=== PATIENT | female | born 1975 | race American Indian/Alaskan Native ===

== ENCOUNTER 2018-06-22 16:56 | Emergency (ER) | payer OTHER ==
[2018-06-22] MEDS ORDERED: ULTRAM PO ONE (20:38)
--- NOTE | 2018-06-22 20:42 | Emergency Department Report ---
ED General Adult HPI - General Chief complaint: Headache Stated complaint: HEAD ACHE/EARS STOPPED UP Time Seen by Provider: 06/22/18 20:28 Source: patient Mode of arrival: Ambulatory Limitations: No Limitations - History of Present Illness Initial comments: There is a 42-year-old female diagnosed with Diagnosis of URI 7 days ago and is also treated with prednisone and NSAIDs states symptoms continue sinus pain sore throat and bilateral ear pain low grade fever 100.4 MAXIMUM TEMPERATURE. symptoms are exacerbated by movement symptoms are relieved by rest associated yellow green nasal rhinorhea Onset/Timin -: week(s) Location: head (emergency) Radiation: non-radiation Severity scale (0 -10): 4 Quality: aching Consistency: intermittent Improves with: rest Worsens with: movement Associated Symptoms: cough, fever/chills, malaise. denies: chest pain, shortness of breath, syncope, weakness Treatments Prior to Arrival: NSAID - Related Data Previous Rx's Medication Instructions Recorded Last Taken Type Permethrin 5% [Acticin 5% CREAM] 60 gm TP ONCE #60 gm 04/13/15 Unknown Rx hydrOXYzine HCL [Atarax] 25 mg PO Q6HR PRN #20 tablet 04/13/15 Unknown Rx traMADol [Ultram] 50 mg PO Q6HR PRN #15 tablet 04/13/15 Unknown Rx Cetirizine HCl [ZyrTEC] 10 mg PO DAILY #30 capsule 06/22/18 Unknown Rx Clindamycin [Clindamycin CAP] 300 mg PO Q8H #30 cap 06/22/18 Unknown Rx Fluticasone [Flonase] 1 spray NS QDAY #1 bottle 06/22/18 Unknown Rx Ibuprofen 800 mg PO TID PRN #30 tablet 06/22/18 Unknown Rx Allergies Allergy/AdvReac Type Severity Reaction Status Date / Time Penicillins Allergy Rash Verified 06/22/18 17:46 ED Review of Systems ROS: Stated complaint: HEAD ACHE/EARS STOPPED UP Other details as noted in HPI Constitutional: denies: chills, fever Eyes: denies: eye pain, eye discharge, vision change ENT: ear pain, throat pain, congestion. denies: dental pain, hearing loss, epistaxis Respiratory: cough. denies: shortness of breath, wheezing Cardiovascular: denies: chest pain, palpitations Endocrine: no symptoms reported Gastrointestinal: denies: abdominal pain, nausea, vomiting, diarrhea Genitourinary: denies: urgency, dysuria, discharge Musculoskeletal: denies: back pain, joint swelling, arthralgia Skin: denies: rash, lesions Neurological: denies: headache, weakness, paresthesias Psychiatric: denies: anxiety, depression Hematological/Lymphatic: denies: easy bleeding, easy bruising ED Past Medical Hx - Past Medical History Previous Medical History?: Yes Hx Hypertension: Yes Additional medical history: Sickle cell trait, hypothyroidism, anemia - Surgical History Past Surgical History?: Yes Additional Surgical History: Tubal ligation - Social History Smoking Status: Never Smoker Substance Use Type: None - Medications Home Medications: Home Medications Medication Instructions Recorded Confirmed Last Taken Type Permethrin 5% [Acticin 5% CREAM] 60 gm TP ONCE #60 gm 04/13/15 Unknown Rx hydrOXYzine HCL [Atarax] 25 mg PO Q6HR PRN #20 tablet 04/13/15 Unknown Rx traMADol [Ultram] 50 mg PO Q6HR PRN #15 tablet 04/13/15 Unknown Rx Cetirizine HCl [ZyrTEC] 10 mg PO DAILY #30 capsule 06/22/18 Unknown Rx Clindamycin [Clindamycin CAP] 300 mg PO Q8H #30 cap 06/22/18 Unknown Rx Fluticasone [Flonase] 1 spray NS QDAY #1 bottle 06/22/18 Unknown Rx Ibuprofen 800 mg PO TID PRN #30 tablet 06/22/18 Unknown Rx ED Physical Exam - General Limitations: No Limitations General appearance: alert, in no apparent distress - Head Head exam: Present: atraumatic, normocephalic, normal inspection - Eye Eye exam: Present: normal appearance, PERRL, EOMI Pupils: Present: normal accommodation - ENT ENT exam: Present: other (bilat maxillary and frontal sinus pain with palpation no erythema no edema, nose: bilat turbinater erythema post nasal drip yellow , ) - Expanded ENT Exam Expanded TM/Canal exam: Erythema: Right TM, Left TM, Effusion: Left TM, Canal Tenderness : Right TM, Left TM Mouth exam: Absent: trismus Throat exam: Positive: tonsillar erythema, tonsillomegaly, tonsillar exudate. Negative: R peritonsillar mass, L peritonsillar mass - Neck Neck exam: Present: full ROM, lymphadenopathy. Absent: tenderness, thyromegaly - Respiratory Respiratory exam: Present: normal lung sounds bilaterally. Absent: respiratory distress, wheezes, stridor, chest wall tenderness - Cardiovascular Cardiovascular Exam: Present: regular rate, normal rhythm, normal heart sounds. Absent: systolic murmur, diastolic murmur, rubs, gallop - GI/Abdominal GI/Abdominal exam: Present: soft, normal bowel sounds. Absent: tenderness, guarding, rebound, rigid, organomegaly, mass, bruit, pulsatile mass, hernia - Rectal Rectal exam: Present: deferred - Extremities Exam Extremities exam: Present: normal inspection - Back Exam Back exam: Present: normal inspection - Neurological Exam Neurological exam: Present: alert, oriented X3, CN II-XII intact, normal gait, reflexes normal. Absent: motor sensory deficit - Expanded Neurological Exam Expanded Patient oriented to: Present: person, place, time Speech: Present: fluid speech Cranial nerves: EOM's Intact: Normal, Gag Reflex: Normal, Tongue Deviation: Normal, Nystagmus: Normal, Facial Sensation: Normal Motor strength exam: RUE: 5, LUE: 5, RLE: 5, LLE: 5 Best Eye Response ([place]): (4) open spontaneously Best Motor Response ([place]): (6) obeys commands Best Verbal Response ([place]): (5) oriented [place] Total: 15 - Psychiatric Psychiatric exam: Present: normal affect - Skin Skin exam: Present: warm, dry, intact, normal color. Absent: rash ED Course Vital Signs 06/22/18 17:30 Temperature 98.6 F Pulse Rate 91 H Respiratory 18 Rate Blood Pressure 168/93 O2 Sat by Pulse 98 Oximetry ED Medical Decision Making - Medical Decision Making This history for sinusitis AOM and URI is currently taking ibuprofen prednisone and Augmentin continue Flonase and Zyrtec patient will follow PCP in 2-3 days patient verbalized understanding and agreement with discharge plan will be DC'd home in stable condition at this time Critical care attestation.: If time is entered above; I have spent that time in minutes in the direct care of this critically ill patient, excluding procedure time. ED Disposition Clinical Impression: URI, acute Sinusitis Qualifiers: Sinusitis location: maxillary Chronicity: acute Recurrence: non-recurrent Qualified Code(s): J01.00 - Acute maxillary sinusitis, unspecified AOM (acute otitis media) Qualifiers: Otitis media type: serous Laterality: bilateral Recurrence: not specified as recurrent Qualified Code(s): H65.03 - Acute serous otitis media, bilateral Disposition: TO HOME OR SELFCARE Is pt being admited?: No Does the pt Need Aspirin: No Condition: Good Instructions: Sinusitis (ED), Otitis Media (ED), Upper Respiratory Infection ( ED) Prescriptions: Cetirizine HCl [ZyrTEC] 10 mg PO DAILY #30 capsule Clindamycin [Clindamycin CAP] 300 mg PO Q8H #30 cap Fluticasone [Flonase] 1 spray NS QDAY #1 bottle Ibuprofen 800 mg PO TID PRN #30 tablet PRN Reason: pain fever Referrals: [facility] [Outside] - 3-5 Days Forms: Work/School Release Form(ED) Time of Disposition: 20:54
[2018-06-22 21:06] VITALS: BP 122/68
== END 2018-06-22 21:04 | disposition home or self-care (01) ==
LOC: ED 16:56
DX: J06.9 Acute upper respiratory infection, unspecified (principal); J32.9 Chronic sinusitis, unspecified; H66.93 Otitis media, unspecified, bilateral; I10 Essential (primary) hypertension; E03.9 Hypothyroidism, unspecified; Z98.51 Tubal ligation status; Z88.0 Allergy status to penicillin
CPT/HCPCS: 99282